=== PATIENT | male | born 1970 | race American Indian/Alaskan Native ===

== ENCOUNTER 2016-12-24 00:59 | Emergency (ER) | payer MEDICAID ==
[~2016-12-24] VITALS: Ht 170.2 cm; Wt 77.1 kg
[2016-12-24] MEDS ORDERED: KETOROLAC TROMETH 60MG/2ML VIAL IM ONE (04:15)
[2016-12-24] MEDS ORDERED: CYCLOBENZAPRINE HCL 10 MG TAB PO ONE (04:15)
[2016-12-24 05:14] VITALS: BP 132/68
== END 2016-12-24 05:18 | disposition home or self-care (01) ==
LOC: EDBD 00:59 → ER 01:03
DX: S39.012A Strain of muscle, fascia and tendon of lower back, initial encounter (principal); F17.210 Nicotine dependence, cigarettes, uncomplicated; V09.29XA Pedestrian injured in traffic accident involving other motor vehicles, initial encounter; Y93.89 Activity, other specified; Y99.8 Other external cause status; Y92.410 Unspecified street and highway as the place of occurrence of the external cause
CPT/HCPCS: 70450; 72131; 96372; 99284; J1885